=== PATIENT | male | born 1985 | race Caucasian/White ===

== ENCOUNTER 2016-08-16 08:08 | Emergency (ER) | payer MEDICAID, OTHER ==
[~2016-08-16] VITALS: Ht 175.3 cm; Wt 61.0 kg
[2016-08-16 08:18] VITALS: BP 117/85; PULSE 87; RESP 16; TEMP 98; O2SAT 99
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
[2016-08-16] MEDS ORDERED: NAPROXEN 500 MG TAB PO ONE (09:00)
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
== END 2016-08-16 10:01 | disposition home or self-care (01) ==
LOC: PHED 08:08
DX: S62.661A Nondisplaced fracture of distal phalanx of left index finger, initial encounter for closed fracture (principal); Y04.0XXA Assault by unarmed brawl or fight, initial encounter; Y93.9 Activity, unspecified; Y92.9 Unspecified place or not applicable; Y99.9 Unspecified external cause status
CPT/HCPCS: 73130; 99283; L3808

== ENCOUNTER 2017-01-30 18:45 | Emergency (ER) | payer OTHER ==
[~2017-01-30] VITALS: Ht 172.7 cm; Wt 59.0 kg
[2017-01-30 18:50] VITALS: BP 119/73; PULSE 72; RESP 16; TEMP 98.1; O2SAT 99
--- NOTE | 2017-01-30 20:01 | RADRPT ---
EXAM DATE/TIME: 01/30/2017 19:32 [facility] COMPARISON: No previous studies available for comparison. INDICATIONS : Right shoulder pain. MEDICAL HISTORY : None. SURGICAL HISTORY : None. ENCOUNTER: Initial ACUITY: 1 week PAIN SCORE: 4/10 LOCATION: Right shoulder. FINDINGS: Multiple view examination of the right shoulder demonstrates no evidence of fracture or dislocation. The glenohumeral and acromioclavicular joints are maintained. There is normal range of motion betwe en internal and external rotation. Bony mineralization is normal. CONCLUSION: Normal radiographic appearance of the right shoulder. Santo Luque MD on January 30, 2017 at 20:00 Board Certified Radiologist. This report was verified electronically.
--- NOTE | 2017-01-30 20:08 | PD ---
HPI Chief Complaint: Injury Time Seen by Provider: 19:00 Travel History International Travel<30 days: No Contact w/Intl Traveler<30days: No Traveled to known affect area: No History of Present Illness HPI 31-year-old male with chief complaint of right shoulder pain 2 weeks. Patient cannot recall specific injury. He reports pain with extension and reaching across the body. He denies numbness or weakness in the extremity. He reports symptom improvement with arms held in neutral position against the body. Pain scale 5/10. PFSH Past Medical History Medical History: Denies Significant Hx Diminished Hearing: No Kidney Stones: Yes Immunizations Current: Yes Tetanus Vaccination: < 5 Years Influenza Vaccination: No Past Surgical History Other Surgery: Yes (cleft pallet repair , rhinoplasty, and bone graft for cleft pallet ) Social History Alcohol Use: Yes (2 daily) Tobacco Use: No Substance Use: No Allergies-Medications (Allergen,Severity, Reaction): Coded Allergies: No Known Allergies (Unverified , 01/30/17) Reported Meds & Prescriptions Reported Meds & Active Scripts Active No Active Prescriptions or Reported Medications Review of Systems Except as stated in HPI: all other systems reviewed are Neg Physical Exam Narrative GENERAL: Well-nourished, well-developed patient. SKIN: Focused skin assessment warm/dry. HEAD: Normocephalic. EYES: No scleral icterus. No injection or drainage. NECK: Supple, trachea midline. No JVD or lymphadenopathy. CARDIOVASCULAR: Regular rate and rhythm without murmurs, gallops, or rubs. RESPIRATORY: Breath sounds equal bilaterally. No accessory muscle use. GASTROINTESTINAL: Abdomen soft, non-tender, nondistended. MUSCULOSKELETAL: No cyanosis, or edema. Right shoulder: TTP over the lateral aspect of the humeral head. No deformity or step-off. Patient has pain with abduction and extension across the chest. 2+ distal pulses. Extremities neurovascular intact. BACK: Nontender without obvious deformity. No CVA tenderness. Data Data Last Documented VS Vital Signs Date Time Temp Pulse Resp B/P Pulse Ox O2 Delivery O2 Flow Rate FiO2 01/30/17 19:18 01/30/17 18:50 98.1 72 16 99 Orders Shoulder, Complete (>2vws) (01/30/17 ) [facility] Medical Decision Making Medical Screen Exam Complete: Yes Emergency Medical Condition: Yes Differential Diagnosis Right shoulder strain versus sprain versus fracture Narrative Course 31-year-old male with right shoulder pain 2 weeks. Patient's physical exam is reassuring. X-ray negative for fracture dislocation. Patient be treated for right shoulder strain. He'll be given a sling instructed to take over-the- counter NSAIDs as needed for pain avoid heavy lifting and shortness activity. Follow-up with her primary care. Diagnosis Primary Impression: Right shoulder strain Qualified Code: S46.911A - Strain of right shoulder, initial encounter Referrals: Primary Care Physician Additional Instructions: Where the sling as needed for comfort. Take [id number] Motrin [id number] milligrams every 6-8 hours as needed for pain. Ice the extremity. Avoid heavy lifting or straining his activity. Follow-up the primary care doctor. Scripts No Active Prescriptions or Reported Meds Disposition: 01 DISCHARGE HOME Condition: Stable Gina Boo Jan 30, 2017 20:07
[2017-01-30] MEDS ORDERED: KETOROLAC TROMETHAMINE 60 MG/2 ML (IM) VIAL IM ONE (20:15)
== END 2017-01-30 20:26 | disposition home or self-care (01) ==
LOC: PHEFT 18:45
DX: S46.911A Strain of unspecified muscle, fascia and tendon at shoulder and upper arm level, right arm, initial encounter (principal); X58.XXXA Exposure to other specified factors, initial encounter
CPT/HCPCS: 73030; 99283; J1885

== ENCOUNTER 2017-10-17 20:11 | Observation (INO) | payer MEDICAID, OTHER ==
[~2017-10-17] VITALS: Ht 175.3 cm; Wt 60.0 kg
[2017-10-17 20:31] VITALS: BP 128/69; PULSE 69; RESP 18; TEMP 98.5; O2SAT 99
[2017-10-17 21:07] LABS: AUTOMATED NEUTROPHIL # 3.7 TH/MM3 (1.8-7.7); BASOPHIL % 0.7 % (0.0-2.0); EOSINOPHIL # 0.2 TH/MM3 (0-0.4); EOSINOPHIL % 3.3 % (0.0-4.0); HEMATOCRIT 44.2 % (39.0-51.0); HEMOGLOBIN 15.3 GM/DL (13.0-17.0); LYMPH % 38.6 % (9.0-44.0); LYMPHOCYTE # 2.9 TH/MM3 (1.0-4.8); MEAN CELL VOLUME 87.3 FL (80.0-100.0); MEAN CORPUSCULAR HEMOGLOBIN 30.3 PG (27.0-34.0); MEAN CORPUSCULAR HGB CONC 34.7 % (32.0-36.0); MEAN PLATELET VOLUME 7.1 FL (7.0-11.0); MONO % 9.2 % (0.0-8.0); MONOCYTE # 0.7 TH/MM3 (0-0.9); NEUT % 48.2 % (16.0-70.0); PLATELET COUNT 267 TH/MM3 (150-450); RED BLOOD COUNT 5.06 MIL/MM3 (4.50-5.90); RED CELL DISTRIBUTION WIDTH 13.4 % (11.6-17.2); WHITE BLOOD COUNT 7.6 TH/MM3 (4.0-11.0)
--- NOTE | 2017-10-17 21:11 | RADRPT ---
EXAM DATE/TIME: 10/17/2017 20:49 [facility] COMPARISON: No previous studies available for comparison. INDICATIONS : Chest pain. MEDICAL HISTORY : Renal calculi. SURGICAL HISTORY : None. ENCOUNTER: Initial ACUITY: 1 day PAIN SCORE: 2/10 LOCATION: Bilateral chest FINDINGS: A single view of the chest demonstrates the lungs to be symmetrically aerated without evidence of mas s, infiltrate or effusion. The cardiomediastinal contours are unremarkable. Osseous structures are intact. CONCLUSION: No acute disease. Titi Aguayo MD on October 17, 2017 at 21:09 Board Certified Radiologist. This report was verified electronically.
[2017-10-17 21:23] LABS: BICARBONATE 28.5 MEQ/L (21.0-32.0); BLOOD UREA NITROGEN 18 MG/DL (7-18); CALCIUM 9.2 MG/DL (8.5-10.1); CHLORIDE 103 MEQ/L (98-107); CREATININE 1.07 MG/DL (0.60-1.30); GLOMERULAR FILTRATION RATE 81 ML/MIN (>89); GLUCOSE,RANDOM 103 MG/DL (74-106); SODIUM (NA) 139 MEQ/L (136-145)
[2017-10-17 21:27] LABS: TROPONIN I LESS THAN 0.02 NG/ML (0.02-0.05)
[2017-10-17 21:47] VITALS: BP 121/77; PULSE 69; RESP 18; O2SAT 99
[2017-10-17] MEDS ORDERED: ASPIRIN 325 MG TAB PO ONE (22:00)
[2017-10-17 22:54] LABS: INTERNATIONAL NORMALIZED RATIO 1.1 RATIO; PROTHROMBIN TIME - PATIENT 11.4 SEC (9.8-11.6)
--- NOTE | 2017-10-17 22:57 | PD ---
HPI Chief Complaint: Chest Pain Time Seen by Provider: 21:47 Travel History International Travel<30 days: No Contact w/Intl Traveler<30days: No Traveled to known affect area: No History of Present Illness HPI Patient presents to the emergency department complaining of an episode of chest pain that began this morning. Pain was approximately 10 minutes in duration, happened about 2 months ago but was worse than the episode today. States that in addition to the episode this morning that he also had a recurrent pain throughout the day. Pain was described as being diffuse, sharp/pressure-like, nonradiating, no alleviating or aggravating factors denies fever, lower extremity edema, dyspnea, abdominal pain, chills, but reports nausea vomiting 1. PFSH Past Medical History Diminished Hearing: No Kidney Stones: Yes Immunizations Current: Yes Tetanus Vaccination: Unknown Influenza Vaccination: No Past Surgical History Other Surgery: Yes (cleft pallet repair , rhinoplasty, and bone graft for cleft pallet ) Social History Alcohol Use: Yes (2 daily) Tobacco Use: No Substance Use: No Allergies-Medications (Allergen,Severity, Reaction): Coded Allergies: No Known Allergies (Unverified Adverse Reaction, Unknown, 10/17/17) Reported Meds & Prescriptions Reported Meds & Active Scripts Active No Active Prescriptions or Reported Medications Review of Systems Except as stated in HPI: all other systems reviewed are Neg Physical Exam Narrative GENERAL: No acute distress. SKIN: Focused skin assessment warm/dry. HEAD: Atraumatic. Normocephalic. EYES: Pupils equal and round. No scleral icterus. No injection or drainage. ENT: No nasal bleeding or discharge. Mucous membranes pink and moist. NECK: Trachea midline. No JVD. CARDIOVASCULAR: Regular rate and rhythm. No murmur appreciated. RESPIRATORY: No accessory muscle use. Clear to auscultation. Breath sounds equal bilaterally. GASTROINTESTINAL: Abdomen soft, non-tender, nondistended. Hepatic and splenic margins not palpable. MUSCULOSKELETAL: No obvious deformities. No clubbing. No cyanosis. No edema. NEUROLOGICAL: Awake and alert. No obvious cranial nerve deficits. Motor grossly within normal limits. Normal speech. PSYCHIATRIC: Appropriate mood and affect; insight and judgment normal. Data Data Last Documented VS Vital Signs Date Time Temp Pulse Resp B/P (MAP) Pulse Ox O2 Delivery O2 Flow Rate FiO2 10/17/17 21:47 69 18 121/77 (92) 99 Room Air 10/17/17 20:31 98.5 Orders Orders Electrocardiogram (10/17/17 20:36) Complete Blood Count With Diff (10/17/17 20:36) Basic Metabolic Panel (Bmp) (10/17/17 20:36) Ckmb (Isoenzyme) Profile (10/17/17 20:36) Troponin I (10/17/17 20:36) Chest, Single Ap (10/17/17 20:36) Iv Access Insert/Monitor (10/17/17 20:36) Ecg Monitoring (10/17/17 20:36) Oxygen Administration (10/17/17 20:36) Oximetry (10/17/17 20:36) CKMB (10/17/17 20:57) CKMB% (10/17/17 20:57) Aspirin (Aspirin) (10/17/17 22:00) Prothrombin Time / Inr (Pt) (10/17/17 21:54) Act Partial Throm Time (Ptt) (10/17/17 21:54) Place In Observation (10/17/17 23:11) Activity Bed Rest With Brp (10/17/17 23:11) Vital Signs (Adult) Q4H (10/17/17 23:11) Cardiac Rhythm .As Directed (10/17/17 23:11) Notify Dr: Other .PRN (10/17/17 23:11) Notify DrMarya Parameters (10/17/17 23:11) Resp Oxygen Nasal Cannula (10/17/17 ) Ckmb (Isoenzyme) Profile (10/17/17 23:57) Ckmb (Isoenzyme) Profile (10/18/17 02:57) Troponin I (10/17/17 23:57) Troponin I (10/18/17 02:57) Electrocardiogram (10/17/17 23:43) Electrocardiogram (10/18/17 02:43) ^ Obtain (10/17/17 23:11) Sodium Chloride 0.9% Flush (Ns Flush) (10/17/17 23:15) Sodium Chloride 0.9% Flush (Ns Flush) (10/18/17 09:00) Acetaminophen (Tylenol) (10/17/17 23:15) Ondansetron Inj (Zofran Inj) (10/17/17 23:15) Child Study Team Director / Telemetry [id number] (10/17/17 23:11) Admit Order (Ed Use Only) (10/17/17 23:11) Labs Laboratory Tests Test 10/17/17 20:57 10/17/17 22:20 White Blood Count 7.6 TH/MM3 Red Blood Count 5.06 MIL/MM3 Hemoglobin 15.3 GM/DL Hematocrit 44.2 % Mean Corpuscular Volume 87.3 FL Mean Corpuscular Hemoglobin 30.3 PG Mean Corpuscular Hemoglobin Concent 34.7 % Red Cell Distribution Width 13.4 % Platelet Count 267 TH/MM3 Mean Platelet Volume 7.1 FL Neutrophils (%) (Auto) 48.2 % Lymphocytes (%) (Auto) 38.6 % Monocytes (%) (Auto) 9.2 % Eosinophils (%) (Auto) 3.3 % Basophils (%) (Auto) 0.7 % Neutrophils # (Auto) 3.7 TH/MM3 Lymphocytes # (Auto) 2.9 TH/MM3 Monocytes # (Auto) 0.7 TH/MM3 Eosinophils # (Auto) 0.2 TH/MM3 Basophils # (Auto) 0.0 TH/MM3 CBC Comment DIFF FINAL Differential Comment Blood Urea Nitrogen 18 MG/DL Creatinine 1.07 MG/DL Random Glucose 103 MG/DL Calcium Level 9.2 MG/DL Sodium Level 139 MEQ/L Potassium Level 3.5 MEQ/L Chloride Level 103 MEQ/L Carbon Dioxide Level 28.5 MEQ/L Anion Gap 8 MEQ/L Estimat Glomerular Filtration Rate 81 ML/MIN Total Creatine Kinase 381 U/L Creatine Kinase MB 0.7 NG/ML Creatine Kinase MB % 0.2 % Troponin I LESS THAN 0.02 NG/ML Prothrombin Time 11.4 SEC Prothromb Time International Ratio 1.1 RATIO Activated Partial Thromboplast Time 25.8 SEC MDM Medical Decision Making Medical Screen Exam Complete: Yes Emergency Medical Condition: Yes Interpretation(s) ECG: SR, rate 63, Incomplete RBBB, LVH; Labs-CK increased Last Impressions Chest X-Ray 10/17/172035 Signed Impressions: Service Date/Time: Tuesday, October 17, 2017 20:49 - CONCLUSION: No acute disease. Titi Aguayo MD Differential Diagnosis ACS, musculoskeletal chest pain, costochondritis, Narrative Course She presents to the emergency department with chest pain that began this morning and has been intermittent throughout the day. He denies chest pain now. Patient has a heart score of 4 (History-2, ECG-BBB: 1, Age-0, RF-1 ( tobacco user and family history of [place]/CAD), troponin:0). Chest x-ray, EKG, and labs ordered. Patient given 325 mg of aspirin. Will admit for observation. Patient advised of no chest pain while in the emergency department. Diagnosis Primary Impression: Chest pain Qualified Codes: R07.9 - Chest pain, unspecified Admitting Information Admitting Physician Requests: Observation Scripts No Active Prescriptions or Reported Meds Condition: Shalini Spear MD October 17, 2017 22:57
[2017-10-17] MEDS ORDERED: SODIUM CHLORIDE 0.9% FLUSH 10 ML FLUSH IV FLUSH PRN (23:15)
[2017-10-17] MEDS ORDERED: ONDANSETRON HCL 4 MG/2 ML VIAL IV PUSH PRN (23:15)
[2017-10-17] MEDS ORDERED: ACETAMINOPHEN 500 MG CPLT PO PRN (23:15)
[2017-10-18 00:34] LABS: TROPONIN I LESS THAN 0.02 NG/ML (0.02-0.05)
[2017-10-18 01:40] VITALS: BP 108/71; PULSE 53; RESP 16; TEMP 97.7; O2SAT 98
[2017-10-18 05:28] VITALS: BP 104/66; PULSE 54; RESP 18; TEMP 98; O2SAT 99
[2017-10-18 05:44] LABS: TROPONIN I LESS THAN 0.02 NG/ML (0.02-0.05)
[2017-10-18 07:59] VITALS: BP 114/79; PULSE 58; RESP 18; TEMP 97.7; O2SAT 99
[2017-10-18 08:17] VITALS: PULSE 61
[2017-10-18] MEDS ORDERED: SODIUM CHLORIDE 0.9% FLUSH 10 ML FLUSH IV FLUSH SCH (09:00)
--- NOTE | 2017-10-18 13:42 | EKG ---
Date Performed: 10/18/2017 Time Performed: 03:06:40 PTAGE: 32 years EKG: SINUS BRADYCARDIA POSSIBLE RIGHT VENTRICULAR CONDUCTION DELAY BORDERLINE ECG PREVIOUS TRACING : 10/17/2017 23.56 Since previous tracing, no significant change noted DOCTOR: Aaron Cummins Interpretating Date/Time 10/18/2017 13:40:21
--- NOTE | 2017-10-18 13:56 | EKG ---
Date Performed: 10/17/2017 Time Performed: 23:56:53 PTAGE: 32 years EKG: SINUS BRADYCARDIA INCOMPLETE RIGHT BUNDLE BRANCH BLOCK BORDERLINE ECG PREVIOUS TRACING : 10/17/2017 20.43 Since previous tracing, no significant change noted DOCTOR: Aaron Cummins Interpretating Date/Time 10/18/2017 13:54:37
--- NOTE | 2017-10-18 13:57 | EKG ---
Date Performed: 10/17/2017 Time Performed: 20:43:12 PTAGE: 32 years EKG: Sinus rhythm BORDERLINE LEFT AXIS DEVIATION INCOMPLETE RIGHT BUNDLE BRANCH BLOCK BORDERLINE ECG NO PREVIOUS TRACING DOCTOR: Aaron Cummins Interpretating Date/Time 10/18/2017 13:56:13
== END 2017-10-18 11:03 | disposition left against medical advice (07) ==
LOC: NEPC 20:11 → NEDA 23:19 → NEPHCDU 10-18 00:17
DX: R07.9 Chest pain, unspecified (principal); I45.10 Unspecified right bundle-branch block; R00.1 Bradycardia, unspecified
CPT/HCPCS: 71045; 80048; 82550; 82552; 84484; 85025; 85610; 85730; 93005; 99285; G0378